=== PATIENT | male | born 1955 | race Two or more races ===

== ENCOUNTER 2018-09-29 21:14 | Inpatient (IN) | payer BC ==
[~2018-09-29] VITALS: Ht 165.1 cm; Wt 92.0 kg
[2018-09-29 21:00] VITALS: BP 138/65
[2018-09-29] MEDS: HEPARIN DRIP/D5W 100UNITS/ML 250 ML IV SCH (21:00)
--- NOTE | 2018-09-29 21:00 | NUR ---
RECEIVED FROM [facility] VIA [facility]. PT. ALERT AND ORIENTED, ADMITS TO CHEST PRESSURE BUT NO PAIN. DOES ADMIT TO BEING NAUSEATED AT THIS TIME. PT. ABLE TO TRANSFER FROM STRETCHER TO BED, DOES APPEAR TO EXPERIENCE DIZZINESS WHEN SITTING UP. TRANSFERRED TO BED WITH NO INCIDENT. CONNECTED TO TOPLINE BEADING MACHINE TENDER WHICH SHOWS SINUS RHYTHM WITH NO ECTOPY NOTED. ON ROOM AIR, SATS 96-98%. APNEA EPISODES NOTED WHEN PATIENT GOES TO SLEEP 84-85% > 20 SECONDS. PT. STATES STARTED TO DEVELOP CHEST PAIN SINCE EARLY THIS A.M WHEN EATING BREAKFAST. STATES HAS BEEN EXPERIENCING CHEST BURNING WITH EXERCISE. PT. 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 IV SITE TO LEFT HAND, HEPARIN AT 1080 UNITS/HR
[2018-09-29] MEDS: SODIUM CHLORIDE 0.9% 1,000 ML IV SCH (21:30)
[2018-09-29] MEDS ORDERED: DEXTROSE (50%) 50ML SYRG IV PRN (22:00)
[2018-09-29] MEDS ORDERED: ONDANSETRON HCL 4 MG/2 ML VIAL IV PRN (22:00)
[2018-09-29] MEDS ORDERED: MORPHINE SULFATE 4 MG/ML SYR/VIAL IV PRN ×2 (22:00)
[2018-09-29] MEDS ORDERED: HYDROcodone-ACET 5/325MG TAB PO PRN (22:00)
--- NOTE | 2018-09-29 22:00 | NUR ---
C/O CHEST PRESSURE 3/10. NTG PATCH ON RIGHT UPPER CHEST FROM PREVIOUS TRANSFERRING FACILITY. DOES ADMIT TO NAUSEA STILL WHICH HE HAD UPON ARRIVAL TO UNIT. PRIMARY NURSE JONNIE AWARE OF PT'S C/O. EKG DONE AT THIS TIME.
[2018-09-29 22:15] VITALS: BP 113/57
[2018-09-29] MEDS ORDERED: ONDANSETRON HCL 4 MG/2 ML VIAL ONE (22:15)
[2018-09-29] MEDS ORDERED: ATORVASTATIN 20 MG TAB ONE (22:15)
[2018-09-29] MEDS ORDERED: METOPROLOL TARTRATE 25 MG TAB ONE (22:16)
--- NOTE | 2018-09-29 22:30 | NUR ---
BLOOD SUGAR BLOOD SUGAR IS 171, PATIENT REFUSED INSULIN AND SAID HE WILL TAKE INSULIN IF SUGAR IS ABOVE 200.
[2018-09-29 22:45] VITALS: BP 143/88
[2018-09-29 22:58] LABS: Basophils # (auto) 0.1 uL; Basophils % (auto) 0.7 % (0.0-2.0); Eosinophils # (auto) 0.3 uL; Eosinophils % (auto) 3.8 % (0.0-7.0); Hematocrit 35.1 % (41.0-53.0); Hemoglobin 11.5 g/dL (13.5-17.5); Lymphocytes # (auto) 1.7 uL; Lymphocytes % (auto) 19.8 % (10.0-50.0); Mean Corpuscular Hemoglobin 27.7 pg (28.0-32.0); Mean Corpuscular Hgb Conc. 32.7 g/dL (32.0-36.0); Mean Corpuscular Volume 84.8 fL (80.0-100.0); Monocytes # (auto) 0.8 uL; Monocytes % (auto) 8.8 % (0.0-12.0); Neutrophils # (auto) 5.9 uL; Neutrophils % (auto) 66.9 % (37.0-80.0); Nucleated Red Blood Cells % 0.1 %; Platelet Count (auto) 171 10^3/uL (140-450); Red Blood Cells 4.13 10^6/uL (4.5-5.90); Red Cell Distribution Width 16.8 % (11.8-14.3); White Blood Cell 8.8 10^3/uL (4.4-10.8)
[2018-09-29] MEDS ORDERED: GLIP-115 PO (23:00)
[2018-09-29] MEDS ORDERED: HYDR-4683 PO (23:00)
[2018-09-29] MEDS ORDERED: MULTTAB OR (23:00)
[2018-09-29] MEDS ORDERED: METO-169 PO (23:00)
[2018-09-29] MEDS ORDERED: CLOP75TA28 PO (23:00)
[2018-09-29] MEDS ORDERED: ALBUAER3 IN (23:00)
[2018-09-29] MEDS ORDERED: FLUT100I IN (23:00)
[2018-09-29] MEDS ORDERED: METF1000 PO (23:00)
[2018-09-29] MEDS ORDERED: ATOR20TA50 PO (23:00)
[2018-09-29] MEDS ORDERED: ENAL5TAB85 PO (23:00)
[2018-09-29] MEDS ORDERED: ASPI81CH43 GT (23:00)
[2018-09-29] MEDS ORDERED: PIO30T GT (23:00)
[2018-09-29] MEDS ORDERED: SITA100T7 PO (23:00)
[2018-09-29 23:13] LABS: BUN/Creatinine Ratio 17.2; Calcium 8.8 mg/dL (8.5-10.1); Magnesium 1.8 mg/dL (1.6-2.6); Potassium 4.3 mmol/L (3.5-5.1)
--- NOTE | 2018-09-29 23:23 | NUR ---
TOILET- UP TO TOILET WITH NO INCREASE IN CHEST PRESSURE OR CHEST PAIN. DENIES SHORTNESS OF BREATH.
[2018-09-29 23:24] LABS: INR 1.07 (0.9-1.15); Prothrombin Time 11.4 sec (9.27-12.13)
[2018-09-29 23:26] LABS: Partial Thromboplastin Time 90.9 sec (23.78-33.04)
[2018-09-29 23:45] VITALS: BP 113/66
[2018-09-30] VITALS (25 sets, daily range): BP systolic 100–144; BP diastolic 46–81
--- NOTE | 2018-09-30 | NUR ---
TROPONIN LEVEL 11.2 NOTIFIED TO HOSPITALIST. ORDERS TO CALL CARDIOLOGY IN AM.
[2018-09-30 03:45] LABS: Basophils # (auto) 0.1 uL; Basophils % (auto) 1.3 % (0.0-2.0); Eosinophils # (auto) 0.3 uL; Eosinophils % (auto) 3.6 % (0.0-7.0); Hematocrit 33.8 % (41.0-53.0); Lymphocytes # (auto) 1.7 uL; Lymphocytes % (auto) 22.6 % (10.0-50.0); Mean Corpuscular Hemoglobin 27.8 pg (28.0-32.0); Mean Corpuscular Hgb Conc. 32.5 g/dL (32.0-36.0); Mean Corpuscular Volume 85.5 fL (80.0-100.0); Monocytes # (auto) 0.7 uL; Monocytes % (auto) 9.1 % (0.0-12.0); Neutrophils # (auto) 4.8 uL; Neutrophils % (auto) 63.4 % (37.0-80.0); Platelet Count (auto) 168 10^3/uL (140-450); Red Blood Cells 3.95 10^6/uL (4.5-5.90); Red Cell Distribution Width 16.8 % (11.8-14.3); White Blood Cell 7.6 10^3/uL (4.4-10.8)
[2018-09-30 03:54] LABS: Albumin 3.4 g/dL (3.4-5.0); BUN/Creatinine Ratio 18.6; Calcium 8.7 mg/dL (8.5-10.1); Potassium 4.4 mmol/L (3.5-5.1)
[2018-09-30 04:25] LABS: Bilirubin, Total 0.4 mg/dL (0.2-1.0); Total Protein 7.3 g/dL (6.4-8.2)
[2018-09-30] MEDS: ACCU-CHEK COMFORT CURVE STRIP VI SCH ×2 (06:44→22:01)
--- NOTE | 2018-09-30 06:45 | NUR ---
BLOOD SUGAR BLOOD SUGAR IS 139, PATIENT REFUSED INSULIN. PATIENT IS NPO.
[2018-09-30] MEDS ORDERED: PANTOPRAZOLE 40 MG/10 ML VIAL IV SCH (07:00)
[2018-09-30 07:24] LABS: Urine Bacteria NONE SEEN /hpf (None Seen); Urine Blood Negative /uL (Negative); Urine Specific Gravity 1.015 (1.001-1.035); Urine WBC <1 /hpf (0 - 3)
--- NOTE | 2018-09-30 08:00 | NUR ---
SBAR REPORT RECEIVED FROM NOC SHIFT RN. AM ASSESSMENT COMPLETED WITH 0 COMPLICATIONS NOTED, VSS. SEE FLOWSHEET FOR MORE DETAILS.
--- NOTE | 2018-09-30 09:50 | NUR ---
PAGED BUSINESS PARTNER ANTONIA AT THIS TIME FOR POC UPDATE.
[2018-09-30] MEDS: SODIUM CHLORIDE 0.9% 1,000 ML IV SCH ×2 (10:00→13:00)
[2018-09-30] MEDS: METOPROLOL TARTRATE 25 MG TAB PO SCH ×2 (10:26→22:01)
[2018-09-30] MEDS: ASPirin 81 mg TAB PO SCH (10:27)
--- NOTE | 2018-09-30 11:45 | NUR ---
MD CHRISTIAN AT BEDSIDE. UPDATED MD ON PT OVERALL STATUS. NEW ORDERS GIVEN AND IMPLEMENTED. MD SPOKE WITH PT AND FAMILY ON POC. NO FURTHER QUESTIONS AT THIS TIME, VSS.
[2018-09-30 12:04] LABS: INR 1.06 (0.9-1.15); Prothrombin Time 11.3 sec (9.27-12.13)
--- NOTE | 2018-09-30 14:00 | NUR ---
MD KNIGHT AT BEDSIDE. UPDATED MD WITH PT STATUS. NEW ORDERS GIVEN AND IMPLEMENTED, VSS. PT AGREEABLE TO PENDING LEFT HEART CATH FOR TOMORROW.
[2018-09-30] MEDS ORDERED: TICAGRELOR 60 MG TAB PO ONE (14:15)
[2018-09-30 19:24] LABS: INR 1.06 (0.9-1.15); Partial Thromboplastin Time 66.2 sec (23.78-33.04); Prothrombin Time 11.3 sec (9.27-12.13)
[2018-09-30] MEDS: HEPARIN DRIP/D5W 100UNITS/ML 250 ML IV SCH (21:47)
[2018-09-30] MEDS: TICAGRELOR 60 MG TAB PO SCH (21:59)
[2018-09-30] MEDS: ATORVASTATIN 20 MG TAB PO SCH (22:00)
[2018-09-30] MEDS: InsuLIN REG 1unit/0.01ml Soln (100units/ml) SC SCH (22:01)
[2018-09-30] MEDS ORDERED: InsuLIN REG 1unit/0.01ml Soln (100units/ml) ONE (22:05)
[2018-10-01] VITALS (30 sets, daily range): BP systolic 111–151; BP diastolic 55–105
--- NOTE | 2018-10-01 00:30 | NUR ---
CALL LAB FOR PTT DRAW.
[2018-10-01 01:44] LABS: Basophils # (auto) 0 uL; Basophils % (auto) 0.5 % (0.0-2.0); Eosinophils # (auto) 0.3 uL; Eosinophils % (auto) 4.5 % (0.0-7.0); Hematocrit 32.5 % (41.0-53.0); Hemoglobin 10.8 g/dL (13.5-17.5); Lymphocytes # (auto) 1.7 uL; Lymphocytes % (auto) 25.2 % (10.0-50.0); Mean Corpuscular Hemoglobin 28.1 pg (28.0-32.0); Mean Corpuscular Hgb Conc. 33.1 g/dL (32.0-36.0); Mean Corpuscular Volume 84.8 fL (80.0-100.0); Monocytes # (auto) 0.8 uL; Monocytes % (auto) 12.3 % (0.0-12.0); Neutrophils % (auto) 57.5 % (37.0-80.0); Nucleated Red Blood Cells % 0.1 %; Platelet Count (auto) 162 10^3/uL (140-450); Red Blood Cells 3.83 10^6/uL (4.5-5.90); White Blood Cell 6.9 10^3/uL (4.4-10.8)
[2018-10-01 02:13] LABS: INR 1.07 (0.9-1.15); Prothrombin Time 11.4 sec (9.27-12.13)
[2018-10-01 02:16] LABS: Partial Thromboplastin Time 91.7 sec (23.78-33.04)
--- NOTE | 2018-10-01 02:19 | NUR ---
LAB CALLED, PTT 91.7, HEPARIN DRIP WAS TURNED OFF.
[2018-10-01] MEDS: SODIUM CHLORIDE 0.9% 1,000 ML IV SCH (03:01)
[2018-10-01 03:09] LABS: Albumin 3.5 g/dL (3.4-5.0); Calcium 8.6 mg/dL (8.5-10.1); Potassium 3.9 mmol/L (3.5-5.1)
[2018-10-01 03:12] LABS: Bilirubin, Total 0.5 mg/dL (0.2-1.0); Total Protein 7.6 g/dL (6.4-8.2)
--- NOTE | 2018-10-01 06:00 | NUR ---
PATIENT IS NPO FOR HEART CATH. NO CHEST PAIN.
[2018-10-01] MEDS: InsuLIN REG 1unit/0.01ml Soln (100units/ml) SC SCH ×4 (07:00→22:30)
[2018-10-01] MEDS: ACCU-CHEK COMFORT CURVE STRIP VI SCH ×4 (07:25→22:23)
[2018-10-01] MEDS: HEPARIN DRIP/D5W 100UNITS/ML 250 ML IV SCH (09:48)
[2018-10-01] MEDS: TICAGRELOR 60 MG TAB PO SCH ×2 (10:00→16:54)
[2018-10-01] MEDS: ASPirin 81 mg TAB PO SCH ×2 (10:00→16:54)
[2018-10-01] MEDS: METOPROLOL TARTRATE 25 MG TAB PO SCH ×2 (10:00→22:30)
--- NOTE | 2018-10-01 11:45 | NUR ---
visits and examines patient - no new orders applied.
[2018-10-01] MEDS ORDERED: LIDOCAINE 2%HCL (LOCAL ANESTH.) INJ 20ML MDV ONE (15:34)
[2018-10-01] MEDS ORDERED: IODIXANOL 320MG/ML 100ML BTL IV ONE (15:35)
--- NOTE | 2018-10-01 15:40 | NUR ---
To cardiac cath per bed on portable quality assurance monitor final - completed pre-op checklist on chart.
[2018-10-01] MEDS ORDERED: SODIUM CHL 0.9% 50 ML ONE (15:43)
[2018-10-01] MEDS ORDERED: MIDAZOLAM HCL 1MG/1ML-2 ML VIAL ONE (15:53)
[2018-10-01] MEDS ORDERED: fentaNYL CITRATE 100 MCG/2 ML VL ONE (15:53)
[2018-10-01] MEDS ORDERED: ANGIOMAX 250 MG VIAL IV ONE (15:53)
[2018-10-01] MEDS ORDERED: TICAGRELOR 90 MG TAB ONE (16:44)
[2018-10-01] MEDS ORDERED: ASPirin 81 mg TAB ONE (16:45)
[2018-10-01 17:00] LABS: INR 1.03 (0.9-1.15); Partial Thromboplastin Time 38.1 sec (23.78-33.04)
--- NOTE | 2018-10-01 17:00 | NUR ---
PATIENT RETURNED FROM SIGNAL [facility]ER ON MAINTENANCE CONSTRUCTION HELPER PER BED ACCOMPANIED PER 3 RNs. O2 ON @ 2L/NC. PATIENT DENIES CHEST PAIN AND SOB. C/O SL. NAUSEA. RIGHT GROIN ANGIO SEAL INTACT WITHOUT HEMATOMA OR BLEEDING NOTED. ICU pt S/P Cardiac Cath PATIENT RETURNED to ROOM 106 PER BED following LEFT Cardiac catheterization, on security monitor and portable oxygen @2L PER NC. Patient connected to ICU monitoring and oxygen. ANGIOSEAL IN PLACE WITHOUT BLEEDING OR HEMATOMA NOTED. Patient educated on need to keep leg straight and flat. Patient verbalized understanding. Pedal pulses on RIGHT leg assessed for positive tissue perfusion. Patient instructed on need to notify staff immediately if any pain, burning or wetness to site, and any lower back pain. All questions and concerns addressed, patient verbalized understanding of all education and instruction.
[2018-10-01] MEDS ORDERED: SODIUM CHLORIDE 0.9% 1,000 ML IV SCH (17:12)
--- NOTE | 2018-10-01 17:43 | NUR ---
DRAWSTRING KNOTTER PHONED PATIENT'S - UPDATED ON STENT PLACEMENT PROCEDURE AND PATIENT CURRENT CONDITION - VERBALIZED UNDERSTANDING.
--- NOTE | 2018-10-01 18:15 | NUR ---
scant amount lt red drng noted at right groin - drsg dry - no hematoma noted - will continue to monitor.
[2018-10-01] MEDS: PANTOPRAZOLE 40 MG TAB PO SCH (18:30)
--- NOTE | 2018-10-01 19:05 | NUR ---
HOB elevated 30 degrees - supper tray given. Voided 450 ml clear lt maneul urine per urinal.
--- NOTE | 2018-10-01 19:50 | NUR ---
Opening Shift Note Assumed care of patient, awake and alert. No S/S of distress/SOB or pain. Patient was post LHC today. Right groin - with Angio seal,dressing dry and intact, no bleeding,no hematoma,no bruises seen. Patient just ate his dinner. VS stable. Instructed on POC and to call for assist PRN, will continue to monitor for changes Q1hr and PRN.
--- NOTE | 2018-10-01 21:00 | NUR ---
PER REPORT,BRILINTA WAS GIVEN IN SENIOR HEALTH EDUCATOR
[2018-10-01] MEDS: ATORVASTATIN 20 MG TAB PO SCH (22:29)
[2018-10-02] VITALS (8 sets, daily range): BP systolic 116–144; BP diastolic 61–86
--- NOTE | 2018-10-02 02:15 | NUR ---
HR AND SPO2 LOW CHECKED PATIENT - PATIENT IS MOANING, EYES CLOSED. WAKE PATIENT UP. PATIENT SAID HE FEELS LIKE DROWNING BUT NOW FEELS BETTER. PATIENT STOOD UP TO URINATE. BED LINENS CHANGED BECAUSE ITS WET WITH URINE. PATIENT WIPED HIS FACE AND BACK. GOWN CHANGED. HE WANTS TO SIT ON THE CHAIR FOR NOW AND WATCH TV NO BLEEDING OR HEMATOMA OR BRUISES SEEN AT RIGHT GROIN. WILL CONTINUE TO MONITOR Addendum: 10/02/18 at 0249 by Madison Walsh RN HR 39-48/MIN, SPO2 84%
--- NOTE | 2018-10-02 03:00 | NUR ---
PATIENT ATE JELLO,BISCUITS AND TOOK CRANBERRY JUICE
--- NOTE | 2018-10-02 04:00 | NUR ---
PATIENT BACK TO BED
[2018-10-02] MEDS: SODIUM CHLORIDE 0.9% 1,000 ML IV SCH (05:00)
[2018-10-02] MEDS: ACCU-CHEK COMFORT CURVE STRIP VI SCH ×2 (06:53→11:30)
[2018-10-02] MEDS: InsuLIN REG 1unit/0.01ml Soln (100units/ml) SC SCH ×2 (06:54→11:30)
[2018-10-02 08:28] LABS: Basophils # (auto) 0 uL; Basophils % (auto) 0.8 % (0.0-2.0); Eosinophils # (auto) 0.2 uL; Eosinophils % (auto) 2.6 % (0.0-7.0); Hematocrit 32.6 % (41.0-53.0); Hemoglobin 10.7 g/dL (13.5-17.5); Lymphocytes # (auto) 1.3 uL; Lymphocytes % (auto) 21.9 % (10.0-50.0); Mean Corpuscular Hemoglobin 27.7 pg (28.0-32.0); Mean Corpuscular Hgb Conc. 32.8 g/dL (32.0-36.0); Mean Corpuscular Volume 84.5 fL (80.0-100.0); Monocytes # (auto) 0.7 uL; Neutrophils # (auto) 3.9 uL; Neutrophils % (auto) 63.7 % (37.0-80.0); Platelet Count (auto) 154 10^3/uL (140-450); Red Blood Cells 3.86 10^6/uL (4.5-5.90); Red Cell Distribution Width 16.8 % (11.8-14.3); White Blood Cell 6.1 10^3/uL (4.4-10.8)
--- NOTE | 2018-10-02 08:39 | NUR ---
REPORT CALLED TO
[2018-10-02 08:45] LABS: BUN/Creatinine Ratio 10.5; Calcium 8.6 mg/dL (8.5-10.1); Potassium 3.7 mmol/L (3.5-5.1)
--- NOTE | 2018-10-02 09:00 | NUR ---
PATIENT TRANSPORTED TO ROOM 221-B PER BED ON [facility] WITH TELE MONITOR IN PLACE. CONDITION APPEARS STABLE FOR TRANSFER.
--- NOTE | 2018-10-02 09:01 | NUR ---
ASSUMED CARE OF PATIENT Assumed care of patient, awake, alert, and oriented x4. No S/S of distress/SOB or pain. IV in left forearm 20 gauge asymptomatic, patent, intact, and saline locked. IV in left hand asymptomatic, intact, patent, and saline locked. Bed locked and in lowest position and call light is within reach. Instructed on POC and to call for assist PRN, and patient verbalized understanding. Will continue to monitor for changes Q1hr and PRN.
[2018-10-02] MEDS: PANTOPRAZOLE 40 MG TAB PO SCH (09:41)
[2018-10-02] MEDS: METOPROLOL TARTRATE 25 MG TAB PO SCH (09:42)
[2018-10-02] MEDS: ASPirin 81 mg TAB PO SCH (09:50)
[2018-10-02] MEDS: TICAGRELOR 60 MG TAB PO SCH (10:00)
[2018-10-02] MEDS ORDERED: TICA1TAB PO (12:44)
[2018-10-02] MEDS ORDERED: ATOR20TA50 PO (12:44)
--- NOTE | 2018-10-02 15:58 | NUR ---
Discharge instructions given as ordered. Encourage to follow up with PMD as instructed. All questions and concerns addressed. Patient verbalized understanding. Medication reconciliation form completed and copy given to patient. IV removed with catheter intact. Telemetry unit returned to [facility]. Patient walked to vehicle with all personal belongings, accompanied by family member. No distress noted at time of departure.
== END 2018-10-02 15:30 | disposition home or self-care (01) | DRG 246 ==
LOC: ICU WEST 21:14 → TELE-CENTR 10-02 08:11
PROVIDERS: ADMIT Internal Medicine; ATTEND Internal Medicine
PROC: 027035Z Dilation of Coronary Artery, One Artery with Two Drug-eluting Intraluminal Devices, Percutaneous Approach (ICD-10-PCS; principal; 2018-10-01)
PROC: 4A023N7 Measurement of Cardiac Sampling and Pressure, Left Heart, Percutaneous Approach (ICD-10-PCS; 2018-10-01)
PROC: B2111ZZ Fluoroscopy of Multiple Coronary Arteries using Low Osmolar Contrast (ICD-10-PCS; 2018-10-01)
PROC: B2131ZZ Fluoroscopy of Multiple Coronary Artery Bypass Grafts using Low Osmolar Contrast (ICD-10-PCS; 2018-10-01)
PROC: B2181ZZ Fluoroscopy of Left Internal Mammary Bypass Graft using Low Osmolar Contrast (ICD-10-PCS; 2018-10-01)
PROC: B2151ZZ Fluoroscopy of Left Heart using Low Osmolar Contrast (ICD-10-PCS; 2018-10-01)
DX: T82.855A Stenosis of coronary artery stent, initial encounter (principal); I21.4 Non-ST elevation (NSTEMI) myocardial infarction; D68.59 Other primary thrombophilia; E11.9 Type 2 diabetes mellitus without complications; E66.9 Obesity, unspecified; E78.5 Hyperlipidemia, unspecified; I10 Essential (primary) hypertension; I25.10 Atherosclerotic heart disease of native coronary artery without angina pectoris; K21.9 Gastro-esophageal reflux disease without esophagitis; Y83.1 Surgical operation with implant of artificial internal device as the cause of abnormal reaction of the patient, or of later complication, without mention of misadventure at the time of the procedure; Z79.82 Long term (current) use of aspirin; Z95.1 Presence of aortocoronary bypass graft; Z79.84 Long term (current) use of oral hypoglycemic drugs; Y92.89 Other specified places as the place of occurrence of the external cause; Z68.33 Body mass index [BMI] 33.0-33.9, adult; Z79.899 Other long term (current) drug therapy
CPT/HCPCS: 36415; 71045; 80048; 80053; 80061; 81001; 81241; 82962; 83735; 84484; 85025; 85301; 85302; 85303; 85305; 85306; 85610; 85613; 85670; 85705; 85730; 85732; 86147; 87081; A6257; C9113; G0378; J1815; J2250; J2405; Q9967

== ENCOUNTER → 2018-10-28 | Outpatient (CLI) | payer BC ==
[~2018-10-28] MED LIST: ALBUAER3 IN; ASPI81CH43 GT; ATOR20TA50 PO; ENAL5TAB85 PO; FLUT100I IN; GLIP-115 PO; HYDR-4683 PO; METF1000 PO; METO-169 PO; MULTTAB OR; PIO30T GT; SITA100T7 PO; TICA1TAB PO
== END | disposition home or self-care (01) ==
LOC: Rad HDHVI 07:51
PROVIDERS: ATTEND Internal Medicine Cardiovascular Disease
DX: I34.0 Nonrheumatic mitral (valve) insufficiency (principal); I21.4 Non-ST elevation (NSTEMI) myocardial infarction
CPT/HCPCS: 93306

== ENCOUNTER → 2018-12-09 | Outpatient (CLI) | payer BC ==
[~2018-12-09] VITALS: Ht 165.1 cm; Wt 84.4 kg
[~2018-12-09] MED LIST changes: +ADENOSINE 71 MG in GIVE UN-DILUTED 0 ML IV ONE; +ADENOSINE 90 MG/30 ML INJ IV ONE
== END | disposition home or self-care (01) ==
LOC: Rad HDHVI 07:55
PROVIDERS: ATTEND Internal Medicine Cardiovascular Disease
DX: I21.4 Non-ST elevation (NSTEMI) myocardial infarction (principal); E11.9 Type 2 diabetes mellitus without complications
CPT/HCPCS: 78452; 93005; 96374; 96375; A9500; J0153

== ENCOUNTER 2019-08-05 07:07 | Day surgery (SDC) | payer BC ==
[~2019-08-05] VITALS: Ht 165.1 cm; Wt 75.7 kg
[~2019-08-05 07:07] MED LIST changes: -ADENOSINE 71 MG in GIVE UN-DILUTED 0 ML IV ONE; -ADENOSINE 90 MG/30 ML INJ IV ONE; -ALBUAER3 IN; -ASPI81CH43 GT; +ASPI81CH43 PO; -FLUT100I IN; -GLIP-115 PO; +GLIP5TAB12 PO; -HYDR-4683 PO; +HYDR-4833 PO; -METF1000 PO; -MULTTAB OR; -PIO30T GT
[2019-08-05] MEDS ORDERED: ANGIOMAX 250 MG VIAL IV ONE (10:03)
[2019-08-05] MEDS ORDERED: SODIUM CHL 0.9% 0 ML ONE (10:03)
[2019-08-05] MEDS ORDERED: fentaNYL CITRATE 100 MCG/2 ML VL ONE (10:03)
[2019-08-05] MEDS ORDERED: MIDAZOLAM HCL 1MG/1ML-2 ML VIAL ONE (10:03)
[2019-08-05] MEDS ORDERED: LIDOCAINE 2%HCL (LOCAL ANESTH.) INJ 20ML MDV ONE (10:04)
[2019-08-05] MEDS ORDERED: IOHEXOL 350 MG/ML 100ML IJ ONE (10:04)
[2019-08-05] MEDS ORDERED: ACETAMINOPHEN 500 MG TAB PO PRN (12:15)
[2019-08-05] MEDS ORDERED: ONDANSETRON HCL 4 MG/2 ML VIAL IV PRN (12:15)
[2019-08-05] MEDS ORDERED: SODIUM CHL 0.9% IV ONE (12:15)
[2019-08-05] MEDS ORDERED: HYDROcodone-ACET 5/325MG TAB PO PRN (12:15)
== END 2019-08-05 13:14 | disposition home or self-care (01) ==
LOC: CATH 07:07
PROVIDERS: ATTEND Internal Medicine Cardiovascular Disease
DX: I25.810 Atherosclerosis of coronary artery bypass graft(s) without angina pectoris (principal); I10 Essential (primary) hypertension; E78.5 Hyperlipidemia, unspecified; I25.2 Old myocardial infarction; E11.9 Type 2 diabetes mellitus without complications; Z82.49 Family history of ischemic heart disease and other diseases of the circulatory system; Z95.1 Presence of aortocoronary bypass graft; Z91.018 Allergy to other foods; Z87.891 Personal history of nicotine dependence; Z95.5 Presence of coronary angioplasty implant and graft; Z79.84 Long term (current) use of oral hypoglycemic drugs; Z79.899 Other long term (current) drug therapy
CPT/HCPCS: 93461; C1760; C1769; C1894; J1644; J2250; J3010; Q9967; 99152; C1751

== ENCOUNTER → 2020-04-07 | Outpatient (CLI) | payer BC | END | disposition home or self-care (01) | LOC: Rad HDHVI 08:05 | PROVIDERS: ATTEND Internal Medicine Cardiovascular Disease | DX: I50.23 Acute on chronic systolic (congestive) heart failure (principal); I25.5 Ischemic cardiomyopathy; R06.02 Shortness of breath | CPT/HCPCS: 93306 ==

== ENCOUNTER → 2020-04-12 | Outpatient (CLI) | payer BC ==
[~2020-04-12] VITALS: Ht 165.1 cm; Wt 73.0 kg
[~2020-04-12] MED LIST changes: +ADENOSINE 61 MG in GIVE UN-DILUTED 0 ML IV ONE; +ADENOSINE 90 MG/30 ML INJ IV ONE
== END | disposition home or self-care (01) ==
LOC: Rad HDHVI 07:52
PROVIDERS: ATTEND Internal Medicine Cardiovascular Disease
DX: I25.10 Atherosclerotic heart disease of native coronary artery without angina pectoris (principal); I10 Essential (primary) hypertension; E11.9 Type 2 diabetes mellitus without complications; E78.00 Pure hypercholesterolemia, unspecified; Z95.1 Presence of aortocoronary bypass graft; Z82.49 Family history of ischemic heart disease and other diseases of the circulatory system
CPT/HCPCS: 78452; 93005; 96374; 96375; A9500; J0153

== ENCOUNTER → 2020-12-07 | Outpatient (CLI) | payer BC ==
[~2020-12-07] MED LIST changes: -ADENOSINE 61 MG in GIVE UN-DILUTED 0 ML IV ONE; -ADENOSINE 90 MG/30 ML INJ IV ONE
== END | disposition home or self-care (01) ==
LOC: Rad HDHVI 08:02
PROVIDERS: ATTEND Internal Medicine Cardiovascular Disease
DX: I20.0 Unstable angina (principal); R06.02 Shortness of breath
CPT/HCPCS: 93306

== ENCOUNTER → 2024-08-31 | Outpatient (CLI) | payer BC ==
[~2024-08-31] MED LIST changes: -GLIP5TAB12 PO; +GLIP5TAB21 PO; -METO-169 PO; +METO-289 PO
== END | disposition home or self-care (01) ==
LOC: Rad HDHVI 08:25
PROVIDERS: ATTEND Internal Medicine Cardiovascular Disease
DX: R07.89 Other chest pain (principal)
CPT/HCPCS: 93306